=== PATIENT | male | born 1960 | race Caucasian/White ===

== ENCOUNTER 2018-09-30 06:59 | Day surgery (SDC) | payer BC ==
[2018-09-30] MEDS ORDERED: PROPOFOL 40 ML (08:52)
[2018-09-30] MEDS ORDERED: PROPOFOL 20 ML (09:29)
== END 2018-09-30 15:07 | disposition home or self-care (01) ==
LOC: GIL 06:59
DX: Z12.11 Encounter for screening for malignant neoplasm of colon (principal); D12.5 Benign neoplasm of sigmoid colon; K62.1 Rectal polyp; K29.70 Gastritis, unspecified, without bleeding
CPT/HCPCS: 43239; 88305